=== PATIENT | male | born 1985 | race American Indian/Alaskan Native ===

== ENCOUNTER 2016-10-10 12:29 | Emergency (ER) | payer SELFPAY | END 2016-10-10 13:25 | disposition left against medical advice (07) | LOC: ED 12:29 | DX: M25.519 Pain in unspecified shoulder (principal); Z53.21 Procedure and treatment not carried out due to patient leaving prior to being seen by health care provider ==

== ENCOUNTER 2017-01-18 05:30 | Emergency (ER) | payer SELFPAY ==
[2017-01-18 05:39] VITALS: BP 134/95
[2017-01-18 06:04] LABS: Basophils % (Auto) 0.3 % (0.0-1.8); Eosinophils % (Auto) 0.2 % (0.0-4.3); Hematocrit 46.9 % (35.5-45.6); Hemoglobin 15.6 gm/dl (11.8-15.2); Mean Corpuscular HGB Conc 33 % (32-34); Mean Corpuscular Hemoglobin 30 pg (28-32); Mean Corpuscular Volume 89 fl (84-94); Platelet Count 187 K/mm3 (140-440); Red Blood Count 5.28 M/mm3 (3.65-5.03); Red Cell Distribution Width 12.7 % (13.2-15.2); White Blood Count 13.8 K/mm3 (4.5-11.0)
[2017-01-18] MEDS ORDERED: TYLENOL PO ONE (06:14)
--- NOTE | 2017-01-18 07:15 | XRay Report ---
ABDOMEN, 2 views: History: Abdominal pain, cramping, nausea and vomiting. There is no evidence of free air beneath the diaphragms. The gas pattern within the abdomen is unremarkable. There is no evidence of bowel dilatation, significant air-fluid levels, or pathologic calcifications. Organ shadows are unremarkable. There is trace hyperdensity in the antrum of the stomach. This resembles oral contrast or possibly Pepto-Bismol. Please correlate with the patient. IMPRESSION: Unremarkable abdomen.
[2017-01-18 07:34] LABS: Alanine Aminotransferase 16 units/L (7-56); Albumin 4.7 g/dL (3.9-5); Albumin/Globulin Ratio 1.8 %; Alkaline Phosphatase 76 units/L (35-129); Anion Gap 27 mmol/L; BUN/Creatinine Ratio 11.25; Blood Urea Nitrogen 18 mg/dL (9-20); Calcium 9.5 mg/dL (8.4-10.2); Carbon Dioxide 20 mmol/L (22-30); Glucose 125 mg/dL (75-100); Potassium 3.5 mmol/L (3.6-5.0); Sodium 140 mmol/L (137-145); Total Protein 7.3 g/dL (6.3-8.2)
[2017-01-18 09:59] LABS: Bilirubin,Urine NEG (Negative); Blood,Urine LG (Negative); Ketones,Urine 20 mg/dL (Negative); Leukocyte Esterase,Urine NEG (Negative); Mucus,Urine FEW /HPF; Nitrite,Urine NEG (Negative); Protein,Urine <15 mg/dL mg/dL (Negative); Urobilinogen,Urine < 2.0 mg/dL (<2.0)
--- NOTE | 2017-01-19 01:02 | ED Elopement Review ---
ED Pt Elopement review - Results review Lab results: Laboratory Tests 01/18/17 01/18/17 01/18/17 05:42 05:42 Unknown WBC 13.8 H RBC 5.28 H Hgb 15.6 H Hct 46.9 H MCV 89 MCH 30 MCHC 33 RDW 12.7 L Plt Count 187 Lymph % (Auto) 13.5 [place] % (Auto) 6.9 Eos % (Auto) 0.2 Baso % (Auto) 0.3 Lymph # 1.9 [place] # 0.9 H Eos # 0.0 Baso # 0.0 Seg Neutrophils % 79.1 H Seg Neutrophils # 10.9 H Sodium 140 Potassium 3.5 L Chloride 97.0 L Carbon Dioxide 20 L Anion Gap 27 BUN 18 Creatinine 1.6 H Estimated GFR > 60 BUN/Creatinine Ratio 11.25 Glucose 125 H Calcium 9.5 Total Bilirubin 1.00 AST 23 ALT 16 Alkaline Phosphatase 76 Total Protein 7.3 Albumin 4.7 Albumin/Globulin Ratio 1.8 Urine Color Yellow Urine Turbidity Clear Urine pH 6.0 Ur Specific [place] 1.016 Urine Protein <15 mg/dl Urine Glucose (UA) Neg Urine Ketones 20 Urine Blood Lg Urine Nitrite Neg Urine Bilirubin Neg Urine Urobilinogen < 2.0 Ur Leukocyte Esterase Neg Urine WBC (Auto) 3.0 Urine RBC (Auto) 5.0 Urine Mucus Few - Call Back decision Pt Call Back Decision: Pt to F/U with PMD (mild worsening in kidney function, blood in urine, needs evaluation, if no md may return)
== END 2017-01-18 11:04 | disposition left against medical advice (07) ==
LOC: ED 05:30
DX: R10.9 Unspecified abdominal pain (principal); Z53.21 Procedure and treatment not carried out due to patient leaving prior to being seen by health care provider
CPT/HCPCS: 36415; 74020; 80053; 81001; 85025

== ENCOUNTER 2017-08-06 11:13 | Emergency (ER) | payer SELFPAY ==
[2017-08-06 11:19] VITALS: BP 136/77
--- NOTE | 2017-08-06 16:10 | Emergency Department Report ---
HPI - General Chief Complaint: Extremity Problem,Nontraumatic - HPI HPI: he is a 31-year-old male with no prior medical condition is known to me presents to ED complaining of right palm pain 2 days. Patient states isless than any injury or falls or trauma to the hand. Patient states on Saturday he recalls hitting his hand on the dining table in a fist but otherwise he does not recall any injuries. Patient states pain feels live spasming/aching/constant type pain on this anterior hand is medial aspect along his pinky. Denies serositis shows sinus nausea/vomiting/abdominal pain/chest pains or shortness of breath ED Past Medical Hx - Past Medical History Hx Asthma: Yes - Surgical History Past Surgical History?: No - Social History Smoking Status: Current Every Day Smoker Substance Use Type: None - Medications Home Medications: Home Medications Medication Instructions Recorded Confirmed Last Taken Type Ketoconazole 2% [Nizoral] 1 applicatio TP QDAY #1 tube 07/30/16 Unknown Rx Sulfamethoxazole/Trimethoprim 2 tab PO BID #20 tab 07/30/16 Unknown Rx [Bactrim 400-80 mg] Cyclobenzaprine [Flexeril] 10 mg PO QHS PRN #20 tablet 08/06/17 Unknown Rx Naproxen [Naprosyn] 500 mg PO BID #30 tablet 08/06/17 Unknown Rx ED Review of Systems ROS: Stated complaint: RIGHT HAND PAIN Other details as noted in HPI Constitutional: denies: chills, fever Eyes: denies: eye pain, eye discharge, vision change ENT: denies: ear pain, throat pain Respiratory: denies: cough, shortness of breath, wheezing Cardiovascular: denies: chest pain, palpitations Endocrine: no symptoms reported Gastrointestinal: denies: abdominal pain, nausea, diarrhea Genitourinary: denies: urgency, dysuria Musculoskeletal: denies: back pain, joint swelling, arthralgia Skin: denies: rash, lesions Neurological: denies: headache, weakness, paresthesias Psychiatric: denies: anxiety, depression Hematological/Lymphatic: denies: easy bleeding, easy bruising Physical Exam - Physical Exam Vital Signs: Vital Signs 08/06/17 11:14 Temperature 98.3 F Pulse Rate 78 Respiratory 18 Rate Blood Pressure 136/77 O2 Sat by Pulse 99 Oximetry Physical Exam: GENERAL: Alert and oriented x3, no apparent distress, Normal Gait, atraumatic. HEAD: Head is normocephalic and a-traumatic. EYES: Extra ocular muscles are intact. Pupils are equal, round, and reactive to light and accommodation. LUNGS: Symetrical with respiration, No wheezing, no rales or crackles, CTAB. HEART: S1, S2 present, regular rate and rhythm without murmur, no rubs, no gallops. Non tender to palpation EXTREMITIES/MUSCULOSKELETAL: No cyanosis, clubbing, rash, lesions or edema. Full ROM bilaterally. UE Pulses 2+bounding bilaterally. UE 5+ strength bilaterally, tenderness to palpation of the medial aspect of the palm. Patient able to make a fist without any problems. Patient had some pain with extend the fingers. NEUROLOGIC: The patient is cooperative with no focal neurologic deficits. Normal speech. Normal sensation in bilateral upper and lower extremities, No loss of sensation, right palm is tender to palpation. SKIN: Warm and dry, No lesions, No ulceration or induration present. ED Course Vital Signs 08/06/17 11:14 Temperature 98.3 F Pulse Rate 78 Respiratory 18 Rate Blood Pressure 136/77 O2 Sat by Pulse 99 Oximetry ED Medical Decision Making - Medical Decision Making 31-year-old male presenting with muscle spasm of the hand ED course: Discussed with patient overuse of cause muscle spasms. Discussed wrist brace application to the right wrist. Patient states his hands feel better and he had. Wrapped with Damir wrap yesterday consisted pressure relieves the pain. Discussed with the patient rested him for this but is lifting. Vital signs are normal patient is in no acute distress Discussed with patient follow-up with primary care physician. Discussed the patient and take medications as prescribed. Patient has no neurological deficit. Patient is alert and oriented 3 and understands all instructions given. Discussed drowsiness effect of Flexeril makes her drowsy and not to operate machinery while taking flexeril - Differential Diagnosis 1. Carpal tunnel 2. Muscle spasm 3. Myalgia 4. Arthralgia 5.Neuralgia Critical care attestation.: If time is entered above; I have spent that time in minutes in the direct care of this critically ill patient, excluding procedure time. ED Disposition Clinical Impression: Hand pain, right Arthralgia Qualifiers: Joint pain location: hand Laterality: right Qualified Code(s): M25.541 - Pain in joints of right hand Disposition: DC- TO HOME OR SELFCARE Is pt being admited?: No Does the pt Need Aspirin: No Condition: Stable Instructions: Carpal Tunnel Syndrome (ED), Arthralgia (ED), Wrist Injury (ED) Additional Instructions: Follow-up with primary care physician or neurology if symptoms worsen please return to ED Take medication as prescribed and follow instructions as given Prescriptions: Cyclobenzaprine [Flexeril] 10 mg PO QHS PRN #20 tablet PRN Reason: Muscle Spasm Naproxen [Naprosyn] 500 mg PO BID #30 tablet Referrals: PRIMARY CARE, [Primary Care Provider] - 3-5 Days EMANUEL GANT MD [Staff Physician] - 3-5 Days [facility] [place]] - 3-5 Days [facility] [Outside] - 3-5 Days [facility] [Outside] - 3-5 Days Forms: Accompanied Note, Work/School Release Form(ED) Time of Disposition: 16:18
== END 2017-08-06 16:36 | disposition home or self-care (01) ==
LOC: ED 11:13
DX: M25.541 Pain in joints of right hand (principal); F17.200 Nicotine dependence, unspecified, uncomplicated
CPT/HCPCS: 99282